=== PATIENT | female | born 1995 | race Caucasian/White ===

== ENCOUNTER 2017-07-26 13:44 | Inpatient (IN) | payer BC ==
[2017-07-26] MEDS ORDERED: METOCLOPRAMIDE HCL INJ/PF 10 MG/2 ML SDV IV ONE ×2 (14:48→16:50)
[2017-07-26] MEDS ORDERED: NORMAL SALINE 1000 ML 1,000 ML IV ONE ×2 (14:48→17:48)
[2017-07-26 16:10] LABS: APPEARANCE,URINE CLOUDY; BILIRUBIN,URINE NEGATIVE (NEGATIVE); GLUCOSE, URINE 50 mg/dL (NEGATIVE); KETONES,URINE NEGATIVE (NEGATIVE); LEUKOCYTE ESTERASE,URINE MODERATE (NEGATIVE); NITRITE,URINE POSITIVE (NEGATIVE); PROTEIN,URINE NEGATIVE (NEGATIVE); URINE SPECIFIC GRAVITY 1.019; UROBILINOGEN,URINE NEGATIVE mg/dL (<2.0)
[2017-07-26 16:24] LABS: ABSOLUTE BASOPHILS # (AUTO) 0.1 10^3/uL (0.0-0.2); ABSOLUTE EOSINOPHILS # (AUTO) 0.2 10^3/uL (0.0-0.6); ABSOLUTE MONOCYTES (AUTO) 0.9 10^3/uL (0.1-1.4); ABSOLUTE NEUT (AUTO) 10.5 10^3/uL (1.7-8.2); BASOPHILS % (AUTO) 0.4 % (0-2); EOSINOPHILS % (AUTO) 1.4 % (0-6); HEMOGLOBIN 13.9 g/dL (12.0-15.5); HGB HCT DIFFERENCE 0.7; LYMPHOCYTES % (AUTO) 14.5 % (13-45); MEAN CORPUSCULAR HEMOGLOBIN 30.8 pg (27.0-33.4); MEAN CORPUSCULAR HGB CONC 33.8 g/dL (32.0-36.0); MEAN CORPUSCULAR VOLUME 91 fl (80-97); MONOCYTES % (AUTO) 6.8 % (3-13); RED CELL DISTRIBUTION WIDTH 12.5 % (11.5-14.0); SEGMENTED NEUTROPHILS % (AUTO) 76.9 % (42-78); WHITE BLOOD COUNT 13.7 10^3/uL (4.0-10.5)
[2017-07-26 16:49] LABS: ALANINE AMINOTRANSFERASE 25 U/L (9-52); ALBUMIN 4.7 g/dL (3.5-5.0); ALKALINE PHOSPHATASE 56 U/L (38-126); ANION GAP 15 (5-19); ASPARTATE AMINO TRANSFERASE 21 U/L (14-36); BILIRUBIN,DIRECT 0.2 mg/dL (0.0-0.4); BILIRUBIN,TOTAL 0.3 mg/dL (0.2-1.3); BLOOD UREA NITROGEN 11 mg/dL (7-20); CALCIUM 10.1 mg/dL (8.4-10.2); CARBON DIOXIDE 24 mmol/L (22-30); CHLORIDE 100 mmol/L (98-107); CREATININE RESULT 0.57 mg/dL (0.52-1.25); GLUCOSE 66 mg/dL (75-110); POTASSIUM 4.6 mmol/L (3.6-5.0); TOTAL PROTEIN 7.7 g/dL (6.3-8.2)
[2017-07-26] MEDS ORDERED: CEFTRIAXONE 1 GM/D5W RTU 1 GM/50 ML RTUPB IV ONE (16:50)
--- NOTE | 2017-07-26 17:46 | ER Document Report ---
ED General - General Chief Complaint: Vomiting Stated Complaint: VOMITING Time Seen by Provider: 07/26/17 14:48 Mode of Arrival: Ambulatory Information source: Patient Notes: Patient presents with severe nausea and vomiting. She states she is 10 weeks . She denies any abdominal pain or cramping. No vaginal bleeding or discharge. No diarrhea. No fevers. Nothing makes symptoms better or worse. They have been constant. They are moderate to severe. She also has decreased appetite. TRAVEL OUTSIDE OF THE [place] IN LAST 30 DAYS: No - Related Data Allergies/Adverse Reactions: No Known Allergies Allergy (Unverified 07/26/17 13:46) Home Medications: Current Home Medications Pnv No.103/Folic/Om3s/Fish Oil [ Gummies] 1 each PO DAILY 07/26/17 [ History] Past Medical History - General Information source: Patient - Social History Smoking Status: Never Smoker Chew tobacco use (# tins/day): No Frequency of alcohol use: None Drug Abuse: None Family History: Reviewed & Not Pertinent Patient has suicidal ideation: No Patient has homicidal ideation: No Renal/ Medical History: Denies: Hx Peritoneal Dialysis Past Surgical History: Reports: Hx Gynecologic Surgery - ovarian cyst L side Review of Systems - Review of Systems Constitutional: denies: Chills, Fever Cardiovascular: denies: Chest pain, Palpitations Respiratory: denies: Cough, Short of breath Gastrointestinal: Nausea, Vomiting. denies: Abdominal pain -: Yes All other systems reviewed and negative Physical Exam - Vital signs Vitals: Temp Pulse Resp BP Pulse Ox 99.7 F 137 H 14 139/71 H 100 07/26/17 13:51 07/26/17 13:51 07/26/17 13:51 07/26/17 13:51 07/26/17 13:51 Interpretation: Tachycardic - General General appearance: Appears well, Alert - HEENT Head: Normocephalic, Atraumatic Eyes: Normal Pupils: PERRL - Respiratory Respiratory status: No respiratory distress Chest status: Nontender Breath sounds: Normal Chest palpation: Normal - Cardiovascular Rhythm: Regular Heart sounds: Normal auscultation Murmur: No - Abdominal Inspection: Normal Distension: No distension Bowel sounds: Normal Tenderness: Nontender Organomegaly: No organomegaly - Back Back: Normal, Nontender - Extremities General upper extremity: Normal inspection, Nontender, Normal color, Normal ROM , Normal temperature General lower extremity: Normal inspection, Nontender, Normal color, Normal ROM , Normal temperature, Normal weight bearing. No: Caesar's sign - Neurological Neuro grossly intact: Yes Cognition: Normal Orientation: AAOx4 Leisa Coma Scale Eye Opening: Spontaneous Leisa Coma Scale Verbal: Oriented Leisa Coma Scale Motor: Obeys Commands Leisa Coma Scale Total: 15 Speech: Normal Motor strength normal: LUE, RUE, LLE, RLE Sensory: Normal - Psychological Associated symptoms: Normal affect, Normal mood - Skin Skin Temperature: Warm Skin Moisture: Dry Skin Color: Normal Course - Vital Signs Vital signs: Temp Pulse Resp BP Pulse Ox 99.7 F 137 H 14 139/71 H 100 07/26/17 13:51 07/26/17 13:51 07/26/17 13:51 07/26/17 13:51 07/26/17 13:51 - Laboratory Result Diagrams: 07/26/17 15:45 07/26/17 15:45 Laboratory results interpreted by me: 07/26/17 07/26/17 07/26/17 15:45 15:45 15:45 WBC 13.7 H Absolute Neutrophils 10.5 H Glucose 66 L Urine Glucose (UA) 50 H Urine Nitrite POSITIVE H Ur Leukocyte Esterase MODERATE H Discharge - Discharge Clinical Impression: Hyperemesis affecting , antepartum UTI (urinary tract infection) Qualifiers: Urinary tract infection type: site unspecified Hematuria presence: without hematuria Qualified Code(s): N39.0 - Urinary tract infection, site not specified Condition: Stable Disposition: ADMITTED OBSERVATION Admitting Provider: [facility] Unit Admitted: Medical Floor - 2N or 2S
[2017-07-26] MEDS ORDERED: ONDANSETRON HCL INJ/PF 4 MG/2 ML SDV IV ONE (18:17)
[2017-07-26] MEDS ORDERED: INFLUENZA ADLT QUAD (36MOS+) 2017-18 VAC 0.5 ML SYR IM PRN (21:10)
[2017-07-26] MEDS: RINGERS SOLUTION,LACTATED 1,000 ML IV PRN (22:18)
[2017-07-26] MEDS: METOCLOPRAMIDE HCL INJ/PF 10 MG/2 ML SDV IV PRN (22:51)
--- NOTE | 2017-07-26 22:51 | PDOC H&P ---
History of Present Illness Admission Date/PCP: 07/26/17 20:05 DARBY QUINONES MD 22 yo with hyperemesis admitted from the ER. Patient complains of: Nausea History of Present Illness: TABITHA HENAO is a 22 year old female She has hyperemesis and is not keeping fluids down. Past Medical History LMP: 05/19/17 Past Surgical History Past Surgical History: Laparoscopy for ovarian cyst. Social History Information Source: Patient Lives with: Spouse/Significant other Smoking Status: Former Smoker - Advance Directive Resuscitation Status: Full Code Family History Family History: None - nc, Reviewed & Not Pertinent Parental Family History Reviewed: No Children Family History Reviewed: No Sibling(s) Family History Reviewed.: No Medication/Allergy Home Medications: Pnv No.103/Folic/Om3s/Fish Oil [ Gummies] 1 each PO DAILY 07/26/17 Allergies/Adverse Reactions: No Known Allergies Allergy (Unverified 07/26/17 13:46) Review of Systems Constitutional: ABSENT: chills, fever(s), headache(s), weight gain, weight loss Respiratory: ABSENT: cough, hemoptysis Musculoskeletal: ABSENT: joint swelling Neurological: ABSENT: abnormal gait, abnormal speech, confusion, dizziness, focal weakness, syncope Physical Exam - Physical Exam Vital Signs: Temp Pulse Resp BP Pulse Ox 98.5 F 99 16 116/72 93 07/26/17 20:49 07/26/17 20:49 07/26/17 20:49 07/26/17 20:49 07/26/17 20:49 General appearance: PRESENT: no acute distress, well-developed, well-nourished Head exam: PRESENT: atraumatic, normocephalic Cardiovascular exam: PRESENT: RRR. ABSENT: diastolic murmur, rubs, systolic murmur GI/Abdominal exam: PRESENT: normal bowel sounds, soft. ABSENT: distended, guarding, mass, organolmegaly, rebound, tenderness Extremities exam: PRESENT: full ROM. ABSENT: calf tenderness, clubbing, pedal edema Neurological exam: PRESENT: alert, awake, oriented to person, oriented to place , oriented to time, oriented to situation, CN II-XII grossly intact. ABSENT: motor sensory deficit Psychiatric exam: PRESENT: appropriate affect, normal mood. ABSENT: homicidal ideation, suicidal ideation Assessment & Plan - Plan Summary Plan Summary: Treat hyperemesis. treat uti. Rhocephin given
[2017-07-27] MEDS: ONDANSETRON 4 MG TAB.RAPDIS PO PRN ×2 (02:35→15:21)
[2017-07-27] MEDS: RINGERS SOLUTION,LACTATED 1,000 ML IV PRN ×3 (05:30→20:38)
[2017-07-27] MEDS: METOCLOPRAMIDE HCL INJ/PF 10 MG/2 ML SDV IV PRN ×2 (09:49→20:38)
--- NOTE | 2017-07-27 11:27 | PDOC PROGRESS REPORT ---
Subjective Progress Note for:: 07/27/17 Subjective:: continues to have occasional vomiting and significant nausea. Reason For Visit: HYPEREMESIS AFFECTING Physical Exam - Physical Exam Vital Signs: Temp Pulse Resp BP Pulse Ox 98.2 F 91 17 96/55 L 100 07/27/17 07:55 07/27/17 07:55 07/27/17 07:55 07/27/17 07:55 07/27/17 07:55 Intake & Output 07/26/17 07/27/17 07/28/17 06:59 06:59 06:59 Intake Total 1250 Balance 1250 General appearance: PRESENT: no acute distress, cooperative Assessment & Plan - Diagnosis (1) Hyperemesis affecting , antepartum Is this a current diagnosis for this admission?: Yes (2) UTI (urinary tract infection) Qualifiers: Urinary tract infection type: site unspecified Hematuria presence: without hematuria Qualified Code(s): N39.0 - Urinary tract infection, site not specified Is this a current diagnosis for this admission?: Yes - Plan Summary Plan Summary: continue antiemetics. Will try PO challenge in AM. NPO x ice chips for now.
[2017-07-28] MEDS: RINGERS SOLUTION,LACTATED 1,000 ML IV PRN ×2 (04:07→11:24)
--- NOTE | 2017-07-28 10:39 | PDOC PROGRESS REPORT ---
Subjective Progress Note for:: 07/28/17 Subjective:: pt feels better but does not think she can tolerate food yet Reason For Visit: HYPEREMESIS Physical Exam - Physical Exam Vital Signs: Temp Pulse Resp BP Pulse Ox 98.5 F 92 17 98/43 L 99 07/28/17 08:35 07/28/17 08:35 07/28/17 08:35 07/28/17 08:35 07/28/17 08:35 Intake & Output 07/27/17 07/28/17 07/29/17 06:59 06:59 06:59 Intake Total 1250 3705 Output Total 2900 Balance 1250 805 General appearance: PRESENT: no acute distress Eye exam: PRESENT: conjunctiva pink Mouth exam: PRESENT: moist Respiratory exam: PRESENT: clear to auscultation abelardo GI/Abdominal exam: PRESENT: normal bowel sounds Rectal exam: PRESENT: deferred Assessment & Plan - Plan Summary Plan Summary: continue present plan of management
[2017-07-28] MEDS: ONDANSETRON 4 MG TAB.RAPDIS PO PRN (23:16)
[2017-07-29] MEDS: RINGERS SOLUTION,LACTATED 1,000 ML IV PRN (12:18)
--- NOTE | 2017-07-29 16:18 | PDOC PROGRESS REPORT ---
Subjective Progress Note for:: 07/29/17 Subjective:: tolerating po, mild nausea, tolerated po breakfast and lunch well and no emesis. no other c/o, no fever. Reason For Visit: HYPEREMESIS Physical Exam - Physical Exam Vital Signs: Temp Pulse Resp BP Pulse Ox 98.0 F 96 15 95/49 L 99 07/29/17 11:24 07/29/17 11:24 07/29/17 11:24 07/29/17 11:24 07/29/17 11:24 Intake & Output 07/28/17 07/29/17 07/30/17 06:59 06:59 06:59 Intake Total 3000 450 Output Total 1600 900 Balance 1400 -450 General appearance: PRESENT: no acute distress, well-developed, well-nourished Head exam: PRESENT: atraumatic, normocephalic Respiratory exam: PRESENT: clear to auscultation abelardo, symmetrical, unlabored Cardiovascular exam: PRESENT: RRR. ABSENT: diastolic murmur, rubs, systolic murmur Pulses: PRESENT: normal dorsalis pedis pul, +2 pedal pulses bilateral Vascular exam: PRESENT: normal capillary refill GI/Abdominal exam: PRESENT: normal bowel sounds, soft. ABSENT: distended, guarding, mass, organolmegaly, rebound, tenderness Rectal exam: PRESENT: deferred Extremities exam: PRESENT: full ROM. ABSENT: calf tenderness, clubbing, pedal edema Neurological exam: PRESENT: alert, awake, oriented to person, oriented to place , oriented to time, oriented to situation, CN II-XII grossly intact. ABSENT: motor sensory deficit Psychiatric exam: PRESENT: appropriate affect, normal mood. ABSENT: homicidal ideation, suicidal ideation Skin exam: PRESENT: dry, intact, warm. ABSENT: cyanosis, rash Assessment & Plan - Diagnosis (1) Hyperemesis affecting , antepartum Is this a current diagnosis for this admission?: Yes Plan: pt tolerating po intake without complication. Meets criteria for discharge. Discharge to home. - Time Time Spent with patient: 15-24 minutes Medications reviewed and adjusted accordingly: Yes Anticipated discharge: Home Within: within 24 hours - Inpatient Certification Based on my medical assessment, after consideration of the patient's comorbidities, presenting symptoms, or acuity I expect that the services needed warrant INPATIENT care.: No I certify that my determination is in accordance with my understanding of Medicare's requirements for reasonable and necessary INPATIENT services [42 CFR 412.3e].: No - Plan Summary Plan Summary: Discharged
--- NOTE | 2017-07-29 16:26 | PDOC DISCHARGE SUMMARY ---
General - Admit/Disc Date/PCP Admission Date/Primary Care Provider: 07/28/17 11:05 DARBY QUINONES MD Discharge Date: 07/29/17 - Discharge Diagnosis (1) Hyperemesis affecting , antepartum Is this a current diagnosis for this admission?: Yes Summary: Admitted for hyperemesis and now with good control and tolerating po intake. Meets criteria for discharge with po meds and f/u in office. - Additional Information Resuscitation Status: Full Code Discharge Diet: As Tolerated Discharge Activity: Activity As Tolerated Prescriptions: Metoclopramide HCl [Reglan 10 mg Tablet] 10 mg PO ACHS 30 Days #120 tablet Ondansetron [Zofran Odt 4 mg Tablet] 8 mg PO BIDP PRN 30 Days #60 tab.rapdis PRN Reason: Ranitidine HCl [Zantac 150 mg Tablet] 150 mg PO BID 60 Days #60 tablet Home Medications: Pnv No.103/Folic/Om3s/Fish Oil [ Gummies] 1 each PO DAILY 07/26/17 Metoclopramide HCl [Reglan 10 mg Tablet] 10 mg PO ACHS 30 Days #120 tablet 07/29 Ondansetron [Zofran Odt 4 mg Tablet] 8 mg PO BIDP PRN 30 Days #60 tab.rapdis Ranitidine HCl [Zantac 150 mg Tablet] 150 mg PO BID 60 Days #60 tablet 07/29/17 History of Present Illness History of Present Illness: TABITHA HENAO is a 22 year old female Hospital Course Hospital Course: Admitted on 07/26 due to unable to tolerate po intake and weight loss Now able to tolerate po intake and controlled nausea with meds. meets criteria for discharge will discharge to home. Physical Exam - Physical Exam Vital Signs: Temp Pulse Resp BP Pulse Ox 98.0 F 96 15 95/49 L 99 07/29/17 11:24 07/29/17 11:24 07/29/17 11:24 07/29/17 11:24 07/29/17 11:24 Intake & Output 07/28/17 07/29/17 07/30/17 06:59 06:59 06:59 Intake Total 3000 450 Output Total 1600 900 Balance 1400 -450 General appearance: PRESENT: no acute distress, well-developed, well-nourished Head exam: PRESENT: atraumatic, normocephalic Respiratory exam: PRESENT: clear to auscultation abelardo, symmetrical, unlabored Cardiovascular exam: PRESENT: RRR. ABSENT: diastolic murmur, rubs, systolic murmur Pulses: PRESENT: normal dorsalis pedis pul, +2 pedal pulses bilateral Vascular exam: PRESENT: normal capillary refill GI/Abdominal exam: PRESENT: normal bowel sounds, soft. ABSENT: distended, guarding, mass, organolmegaly, rebound, tenderness Rectal exam: PRESENT: deferred Extremities exam: PRESENT: full ROM. ABSENT: calf tenderness, clubbing, pedal edema Musculoskeletal exam: PRESENT: ambulatory Neurological exam: PRESENT: alert, awake, oriented to person, oriented to place , oriented to time, oriented to situation, CN II-XII grossly intact. ABSENT: motor sensory deficit Psychiatric exam: PRESENT: appropriate affect, normal mood. ABSENT: homicidal ideation, suicidal ideation Skin exam: PRESENT: dry, intact, warm. ABSENT: cyanosis, rash Plan Discharge Plan: discharge to home. Time Spent: Less than 30 Minutes
[2017-07-29 16:45] VITALS: BP 100/51
== END 2017-07-29 16:55 | disposition home or self-care (01) | DRG 781 ==
LOC: ER 13:44 → EH 20:05 → 2S 20:48 → OBSVTOIN 07-28 11:05
PROVIDERS: ADMIT Obstetrics & Gynecology; ATTEND Obstetrics & Gynecology
PROC: 3E0234Z Introduction of Serum, Toxoid and Vaccine into Muscle, Percutaneous Approach (ICD-10-PCS; principal; 2017-07-29)
DX: O21.0 Mild hyperemesis gravidarum (principal); O23.41 Unspecified infection of urinary tract in pregnancy, first trimester; Z3A.10 10 weeks gestation of pregnancy; Z23 Encounter for immunization
CPT/HCPCS: 36415; 80053; 81001; 85025; 87040; 90686; 99285; G0378; J0696; J2405; J2765; J7030; J7120; S0119